=== PATIENT | male | born 1980 | race Two or more races ===

== ENCOUNTER → 2019-03-08 | Outpatient (CLI) | payer OTHER | END | disposition home or self-care (01) | LOC: RAD 08:25 → EDBD 09:00 | DX: N45.1 Epididymitis (principal); I86.1 Scrotal varices; E78.5 Hyperlipidemia, unspecified; I10 Essential (primary) hypertension; E03.9 Hypothyroidism, unspecified; Z79.899 Other long term (current) drug therapy | CPT/HCPCS: 76870; 93975 ==